=== PATIENT | male | born 1990 | race African-American/Black ===

== ENCOUNTER 2019-12-07 22:53 | Emergency (ER) | payer SELFPAY ==
[~2019-12-07] VITALS: Ht 188 cm; Wt 72.7 kg
[2019-12-07 23:13] VITALS: Ht 188 cm; Wt 72.7 kg
[2019-12-08] MEDS ORDERED: DOXYCYCLINE HY100 M2 PO (00:08)
[2019-12-08 00:44] VITALS: BP 138/87
== END 2019-12-08 00:44 | disposition home or self-care (01) ==
LOC: D.ER 22:53
DX: L03.90 Cellulitis, unspecified (principal)

== ENCOUNTER 2020-01-20 10:30 | Emergency (ER) | payer SELFPAY ==
[~2020-01-20] VITALS: Ht 188 cm; Wt 75.0 kg
[~2020-01-20 10:30] MED LIST: DOXYCYCLINE HY100 M2 PO
[2020-01-20 10:39] VITALS: Ht 188 cm; Wt 75.0 kg
[2020-01-20] MEDS ORDERED: AUGMENTIN 875-11 TAB PO (11:01)
[2020-01-20 11:55] VITALS: BP 125/73
== END 2020-01-20 11:30 | disposition home or self-care (01) ==
LOC: D.ER 10:30
DX: S81.851A Open bite, right lower leg, initial encounter (principal); W54.0XXA Bitten by dog, initial encounter; Y93.9 Activity, unspecified; Y92.9 Unspecified place or not applicable

== ENCOUNTER 2020-04-30 10:28 | Emergency (ER) | payer SELFPAY ==
[~2020-04-30] VITALS: Ht 188 cm; Wt 84.1 kg
[~2020-04-30 10:28] MED LIST changes: +AUGMENTIN 875-11 TAB PO
[2020-04-30 10:31] VITALS: Ht 188 cm; Wt 84.1 kg
[2020-04-30 11:19] LABS: BASOPHILS 0.4 % (0-2); EOSINOPHILS 0.4 % (0-7); HEMATOCRIT 45.2 % (42.0-54.0); HEMOGLOBIN 14.8 g/dL (13.5-17.5); IMMATURE GRANULOCYTES 0.1 % (0-5); LYMPHOCYTES 18.5 % (15-50); MCH 29.8 pg (26.0-34.0); MCHC 32.7 g/dL (31.0-37.0); MCV 91.1 fL (80.0-100.0); MEAN PLATELET VOLUME 8.7 fL (7.4-10.4); NEUTROPHILS 75.6 % (40-80); PLATELET COUNT 202 10x3/uL (130-400); RBC 4.96 10x6/uL (4.20-6.10); RDW 13.1 % (11.5-14.5)
[2020-04-30 11:30] LABS: CALC OSMOLALITY 280 mosm/kg (275-300); CALCIUM 9.3 mg/dL (8.5-10.1); CARBON DIOXIDE 28.5 mmol/L (21.0-32.0); CHLORIDE - SERUM 105 mmol/L (98-107); CREATININE - SERUM 0.8 mg/dL (0.6-1.3); GLUCOSE 89 mg/dL (74-106); SODIUM 141 mmol/L (136-145); UREA NITROGEN 14 mg/dL (7-18); eGFR NON AFRICAN AMERICAN > 90 mL/min (90-120)
[2020-04-30 11:35] LABS: POTASSIUM - SERUM 4.8 mmol/L (3.5-5.1)
[2020-04-30 11:57] LABS: ALBUMIN 4.3 g/dL (3.4-5.0); ALKALINE PHOSPHATASE 42 U/L (30-120); ALT (SGPT) 31 U/L (10-68); BILIRUBIN - TOTAL 0.36 mg/dL (0.2-1.3); CREATINE KINASE 389 UL (21-232); PROTEIN - SERUM 8.4 g/dL (6.4-8.2)
[2020-04-30 12:00] LABS: CKMB 1.8 U/L (0.0-3.6)
[2020-04-30 13:28] LABS: BILIRUBIN NEGATIVE (NEGATIVE); GLUCOSE NEGATIVE (NEGATIVE); KETONE NEGATIVE (NEGATIVE); NITRITE NEGATIVE (NEGATIVE); UROBILINOGEN NORMAL (NORMAL)
[2020-04-30 13:44] LABS: UDS - AMPHET POSITIVE QUAL (NEGATIVE); UDS - BARB NEGATIVE QUAL (NEGATIVE); UDS - BENZO POSITIVE QUAL (NEGATIVE); UDS - COCAINE NEGATIVE QUAL (NEGATIVE); UDS - OPIATE NEGATIVE QUAL (NEGATIVE); UDS - PCP NEGATIVE QUAL (NEGATIVE); UDS - THC POSITIVE QUAL (NEGATIVE)
[2020-04-30 14:50] VITALS: BP 121/78
== END 2020-04-30 14:51 | disposition home or self-care (01) ==
LOC: D.ER 10:28
PROVIDERS: Emergency Medicine
DX: E86.0 Dehydration (principal); R79.89 Other specified abnormal findings of blood chemistry; F19.10 Other psychoactive substance abuse, uncomplicated